=== PATIENT | female | born 1995 | race Caucasian/White ===

== ENCOUNTER 2023-10-21 01:51 | Emergency (ER) | payer SELFPAY ==
[~2023-10-21] VITALS: Ht 172.7 cm; Wt 66.8 kg
[2023-10-21 01:55] VITALS: O2SAT 99
[2023-10-21 03:13] LABS: BASOPHILS % 0.4 % (0.0-2.0); DIFFERENTIAL COMMENT 0; EOSINOPHILS % 0.1 % (0.0-5.0); HEMOGLOBIN. 12.6 g/dL (12.0-16.0); LYMPHOCYTES % 9.1 % (20.0-50.0); MEAN CORPUSCULAR HEMOGLOBIN 33.3 pg (28.0-32.0); MEAN CORPUSCULAR HGB CONC 33.2 g/dL (31.0-37.0); MEAN CORPUSCULAR VOLUME 100.5 fL (81.0-99.0); MEAN PLATELET VOLUME 8.5 fl (7.4-10.4); MONOCYTES % 5.6 % (2.0-8.0); NEUTROPHILS % 84.8 % (40.0-76.0); PLATELET 176 x1000/uL (130-400); RED BLOOD CELL COUNT 3.79 mill/uL (4.2-5.4); RED CELL DISTRIBUTION WIDTH 13.8 % (11.6-14.6); WHITE BLOOD COUNT 5.7 x1000/uL (4.5-11.0)
[2023-10-21 03:14] LABS: CHLORIDE 106 mEq/L (98-107); SODIUM 140 mEq/L (136-145)
[2023-10-21 03:15] LABS: CALCIUM 9.4 mg/dL (8.7-10.4); CARBON DIOXIDE 27 mEq/L (21-32)
[2023-10-21 03:20] LABS: CREATININE 0.7 mg/dL (0.6-1.0); GLUCOSE 90 mg/dL (70-105); UREA NITROGEN BLOOD 12 mg/dL (9-23)
[2023-10-21 03:22] LABS: ALANINE AMINOTRANSFERASE 29 IU/L (10-49); ALBUMIN 4.7 g/dL (3.2-4.8); ASPARTATE AMINOTRANSFERASE 43 IU/L (<34); BILIRUBIN DIRECT 0.2 mg/dL (<=3.0); BILIRUBIN TOTAL 0.6 mg/dL (0.1-1.0); PROTEIN TOTAL 7.1 g/dL (6.0-8.3)
[2023-10-21] MEDS ORDERED: FAMOTIDINE 20MG/2ML VIAL IV ONE (06:15)
[2023-10-21 06:20] LABS: HCG SCREEN NEGATIVE
[2023-10-21] MEDS: SODIUM CHLORIDE 0.9% 1,000 ML IV ONE (06:40)
[2023-10-21] MEDS: FAMOTIDINE 20MG/2ML VIAL IV NR (06:40)
[2023-10-21] MEDS: ONDANSETRON HCL 4MG/2ML INJ IV ONE (06:40)
[2023-10-21 08:22] VITALS: BP 118/74; PULSE 62; RESP 12; TEMP 98.3
== END 2023-10-21 08:30 | disposition home or self-care (01) ==
LOC: ER 01:51
DX: F10.10 Alcohol abuse, uncomplicated (principal); R11.0 Nausea; E86.0 Dehydration
CPT/HCPCS: 80076; 80048; 84703; 83690; 85025; 36415; 96361; 96374; 96375; 99284; J3490; J2405; J7030; Z7610